=== PATIENT | male | born 1985 | race Caucasian/White ===

== ENCOUNTER 2018-07-15 08:19 | Outpatient (CLI) | payer BC ==
[2018-07-15] MEDS ORDERED: Iopamidol 370 76% 100 ML VIAL ONE (09:00)
--- NOTE | 2018-07-15 11:19 | CT ---
CT ABDOMEN AND PELVIS WITH AND WITHOUT IV CONTRAST: HISTORY: Hematuria. Prior testicular torsion. FINDINGS: Each renal collecting system, ureter, and urinary bladder are decompressed, without stone evident. N o filling defects are apparent within the urinary system on the delayed images. The urinary bladder remains incompletely distended. The lung bases are clear. The liver, spleen, kidneys, adrenal glands, and pancreas are unremarkable. No enlarged lymph nodes or free fluid. Bilateral pars interarticularis defects at the L5 level. IMPRESSION: 1. No urinary tract abnormalities are demonstrated to explain hematuria. 2. 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 POS: RONY
== END 2018-07-15 08:20 | disposition home or self-care (01) ==
LOC: SCSCT 08:19
PROVIDERS: ATTEND Urology
DX: R31.29 Other microscopic hematuria (principal); M47.816 Spondylosis without myelopathy or radiculopathy, lumbar region
CPT/HCPCS: 74178